=== PATIENT | male | born 1965 ===

== ENCOUNTER 2023-03-21 23:40 | Emergency (ER) | payer OTHER ==
[~2023-03-21] VITALS: Ht 165.1 cm; Wt 68.0 kg
[~2023-03-21 23:40] MED LIST: AMOCLA875 PO; CEPH500 PO; DIPATR PO; PROM25 PO
[2023-03-22 00:38] LABS: BASOPHILS ABSOLUTE AUTO 0.04 K/mm3 (0.00-0.23); BASOPHILS PERCENT AUTO 1 % (0-2); EOSINOPHILS ABSOLUTE AUTO 0.33 K/mm3 (0.00-0.68); EOSINOPHILS PERCENT AUTO 4 % (0-6); Hematocrit 43.9 % (37.0-53.0); IMMATURE GRAN ABSOLUTE AUTO 0.02 K/mm3 (0.00-0.10); IMMATURE GRAN PERCENT AUTO 0 % (0-1); LYMPHOCYTES ABSOLUTE AUTO 1.93 K/mm3 (0.84-5.20); LYMPHOCYTES PERCENT AUTO 24 % (21-46); MONOCYTES ABSOLUTE AUTO 0.89 K/mm3 (0.16-1.47); MONOCYTES PERCENT AUTO 11 % (4-13); Mean Corpuscular HGB 29.3 pg (26.0-34.0); Mean Corpuscular HGB Conc 34.2 g/dL (31.5-36.5); Mean Corpuscular Volume 86 fL (80-100); Mean Platelet Volume 9.8 fL (9.1-12.4); NEUTROPHILS ABSOLUTE AUTO 4.94 K/mm3 (1.96-9.15); NEUTROPHILS PERCENT AUTO 61 % (41-73); Platelet Count 211 K/mm3 (150-400); RDW Coefficient Variation 12.8 % (11.7-14.2); RDW Standard Deviation 39.9 fL (35.1-46.3); Red Blood Cell Count 5.12 M/mm3 (4.30-5.90); White Blood Cell Count 8.15 K/mm3 (4.00-11.30)
[2023-03-22 00:57] LABS: Albumin, Blood 3.7 g/dL (3.4-5.0); Bilirubin, Total 0.3 mg/dL (0.1-1.0); Bun/Creatinine Ratio 16.4 (12.0-20.0); Calcium, Blood 8.2 mg/dL (8.5-10.1); Creatinine, Blood 1.1 mg/dL (0.60-1.20); Globulin, Blood 3.7 g/dL (2.2-4.0); Potassium, Blood 3.6 mmol/L (3.5-5.5); Total Protein, Blood 7.4 g/dL (6.4-8.2)
[2023-03-22 01:47] VITALS: BP 152/95
[2023-03-22 01:48] LABS: Source, Urine Clean Catch
[2023-03-22 01:57] LABS: Bilirubin, Urine Neg (Neg); Blood, Urine 5+ (Neg); Glucose Qualitative, Urine Neg (Neg); Ketones, Urine Neg (Neg); Leukocyte Esterase, Urine Neg (Neg); Nitrite, Urine Neg (Neg); Protein, Urine Neg (Neg); Specific Gravity, Urine 1.025 (1.003-1.022); Urobilinogen, Urine NORM (Normal)
[2023-03-22 02:10] LABS: Appearance, Urine Clear (Clear); Color, Urine Yellow (P-Yellow)
[2023-03-22 02:11] LABS: Amorphous Light (0-Heavy); Bacteria Not Seen /hpf; Mucus Light (0-Heavy); Red Blood Cells, Urine 50-100 /hpf (0-2); Squamous Epithelial Cells Rare /hpf (Few); White Blood Cells, Urine Not Seen /hpf (0-5)
== END 2023-03-22 02:15 | disposition home or self-care (01) ==
LOC: ER 23:40
PROVIDERS: Student in an Organized Health Care Education/Training Program
DX: N13.2 Hydronephrosis with renal and ureteral calculous obstruction (principal); I10 Essential (primary) hypertension
CPT/HCPCS: 74177; 80053; 81001; 85025; 99284-25; Q9967

== ENCOUNTER → 2024-03-07 | Outpatient (CLI) | payer OTHER ==
[2024-03-20 11:04] LABS: CALCIUM, URINE - PER 24H 287 mg/d (100-250); CALCIUM, URINE - PER VOLUME 27.3 mg/dL; CHLORIDE, URINE - PER 24H 75 mmol/d (140-250); CHLORIDE, URINE - PER VOLUME 71 mmol/L; CITRIC ACID, URINE - PER 24H 434 mg/d (320-1240); CITRIC ACID,URINE - PER VOLUME 413 mg/L; CREATININE, URINE - PER 24H 1407 mg/d (800-2100); CREATININE, URINE - PER VOLUME 134 mg/dL; HOURS COLLECTED 24 hr; MAGNESIUM, URINE - PER VOLUME 13.8 mg/dL; MAGNESIUM, URINE PER 24H 145 mg/d (12-199); OXALATE, URINE - PER 24H 22 mg/d (16-49); OXALATE, URINE - PER VOLUME 21 mg/L; PH, URINE 6.13 (5.00-7.50); PHOSPHORUS, URINE - PER 24H 840 mg/d (400-1300); PHOSPHORUS, URINE - PER VOLUME 80 mg/dL; POTASSIUM, URINE - PER 24H 57 mmol/d (25-125); POTASSIUM, URINE - PER VOLUME 54 mmol/L; SODIUM, URINE - PER 24H 82 mmol/d (51-286); SODIUM, URINE - PER VOLUME 78 mmol/L; SULFATE, URINE - PER 24H 24 mmol/d (6-30); SULFATE, URINE - PER VOLUME 23 mmol/L; TOTAL VOLUME 1050 mL; URIC ACID, URINE - PER 24H 543 mg/d (250-750); URIC ACID, URINE - PER VOLUME 51.7 mg/dL; URINE SUPERSATURATION INTERP Abnormal; URINE SUPERSATURATION, CAOX 9.67; URINE SUPERSATURATION, UA CALC 0.61
== END | disposition home or self-care (01) ==
LOC: LAB SHORT 11:08 → LAB 11:08 → LAB FUT 02-14 10:50
PROVIDERS: Physician Assistant
DX: N20.1 Calculus of ureter (principal); Z87.442 Personal history of urinary calculi; Z80.42 Family history of malignant neoplasm of prostate
CPT/HCPCS: 81003; 81050; 82131; 82140; 82340; 82436; 82507; 82570; 83735; 83935; 83945; 84105; 84133; 84300; 84392; 84560

== ENCOUNTER 2024-08-10 11:40 | Day surgery (SDC) | payer OTHER ==
[~2024-08-10] VITALS: Ht 162.6 cm; Wt 67.8 kg
[~2024-08-10 11:40] MED LIST changes: +Lactated Ringer's 1,000 ML IV ONE; +Lidocaine HCl 2% 10 ML SDA ONE
[2024-08-10] MEDS ORDERED: Lactated Ringer's 1,000 ML IV ONE (12:32)
[2024-08-10] MEDS ORDERED: CeFAZolin Sodium 2,000 MG VIAL ONE (12:47)
[2024-08-10] MEDS ORDERED: propofoL 40 ML IV ONE (13:01)
[2024-08-10] MEDS ORDERED: Midazolam HCl 1MG / ML 2ML Vial ONE (13:02)
[2024-08-10] MEDS ORDERED: FentaNYL Citrate 50 MCG/ML 2 ML Injection ONE (13:02)
[2024-08-10] MEDS ORDERED: Ropivacaine 0.5% HCL/PF 5 MG/ML 30ML Vial ONE (13:04)
[2024-08-10] MEDS ORDERED: Ondansetron HCl 2 MG / ML 2ML Vial ONE (13:06)
[2024-08-10] MEDS ORDERED: Dexamethasone Sod Phos 10 MG/ML 1ML VIAL ONE (13:06)
--- NOTE | 2024-08-10 13:54 | NUR ---
08/10/24 1354 [place] dow TIME OUT AT 1336. DR MELENDEZ PERFORMED NERVE BLOCK, PT TOLERATED WELL.
--- NOTE | 2024-08-10 15:08 | NUR ---
08/10/24 1508 Aurora Das 1452: PT INTO PACU, LMA IN PLACE, DR MELENDEZ AT BEDSIDE.
[2024-08-10 15:26] VITALS: BP 144/89
[2024-08-10] MEDS ORDERED: Ketorolac Tromethamine 30mg Vial ONE (15:30)
--- NOTE | 2024-08-10 16:27 | NUR ---
08/10/24 [id number] CESAR PAULINO pt in during discharge instructions.
== END 2024-08-10 16:06 | disposition home or self-care (01) ==
LOC: ORSCSDS 11:40
PROVIDERS: Orthopaedic Surgery
PROC: 0PSH04Z Reposition Right Radius with Internal Fixation Device, Open Approach (ICD-10-PCS; principal; 2024-08-10 13:00)
DX: S52.321A Displaced transverse fracture of shaft of right radius, initial encounter for closed fracture (principal); S57.81XA Crushing injury of right forearm, initial encounter; W01.0XXA Fall on same level from slipping, tripping and stumbling without subsequent striking against object, initial encounter
CPT/HCPCS: C1713; J0690; J1100; J1885; J2003; J2250; J2405; J2704; J2795; J3010; J7120